=== PATIENT | female | born 1950 | race Caucasian/White ===

== ENCOUNTER → 2016-07-25 | Outpatient (CLI) | payer BC ==
[~2016-07-25] MED LIST: ASPI-496 PO; CALC-451 PO; INSU100V8 SQ; LEVO150T5 PO; LISI5TAB7 PO; METF500T4 PO; SIMV10TA3 PO
[2016-07-25 15:29] LABS: BLOOD UREA NITROGEN 16 mg/dL (7-18)
[2016-07-25 15:37] LABS: ASPARTATE AMINO TRANSFERASE 12 U/L (15-37)
== END | disposition home or self-care (01) ==
LOC: STAR 14:08
PROVIDERS: ATTEND Orthopaedic Surgery
DX: Z01.818 Encounter for other preprocedural examination (principal); S83.241A Other tear of medial meniscus, current injury, right knee, initial encounter; X58.XXXA Exposure to other specified factors, initial encounter; Y93.89 Activity, other specified; Y92.89 Other specified places as the place of occurrence of the external cause; Y99.8 Other external cause status
CPT/HCPCS: 36415; 80053; 93005

== ENCOUNTER 2016-08-01 11:12 | Day surgery (SDC) | payer BC ==
[~2016-08-01] VITALS: Ht 154.9 cm; Wt 84.0 kg
[~2016-08-01 11:12] MED LIST changes: +BUPIVACAINE/PF-EPI 0.25% 1:200K ONE; +LIDOCAINE 1%-EPI 1:100K, 50ML ONE
[2016-08-01] MEDS ORDERED: LACTATED RINGERS 1,000 ML IV SCH (11:31)
[2016-08-01 11:32] VITALS: BP 134/83
[2016-08-01] MEDS ORDERED: DEXTROSE 50%, 50ML SYRINGE IVPush STA (11:52)
[2016-08-01] MEDS ORDERED: DEXTROSE 50%, 50ML SYRINGE ONE (11:55)
[2016-08-01] MEDS ORDERED: FENTANYL PF 250 MCG/5ML ONE (12:54)
[2016-08-01] MEDS ORDERED: MIDAZOLAM 1 MG/ML, 2ML ONE (12:54)
[2016-08-01] MEDS ORDERED: TEMPLATE NON-FORMULARY MED. (Insulin Glargine,Hum.rec.anlog** (Lantus**) 20 UNITS) SQ SCH (13:30)
[2016-08-01] MEDS ORDERED: ONDANSETRON 2MG/ML, 2ML ONE (13:37)
[2016-08-01] MEDS ORDERED: PROPOFOL 10 MG/ML, 20ML ONE (13:37)
[2016-08-01] MEDS ORDERED: KETOROLAC 30 MG/1 ML ONE (13:37)
[2016-08-01] MEDS ORDERED: DEXAMETHASONE 4 MG/ML, 5ML ONE (13:37)
[2016-08-01] MEDS ORDERED: CEFAZOLIN 1,000 MG ONE (13:37)
[2016-08-01] MEDS ORDERED: HYDROmorphone 1 MG/ML, 1ML IV PRN (14:00)
[2016-08-01] MEDS ORDERED: LABETALOL 5MG/ML, 20ML IV PRN (14:00)
[2016-08-01] MEDS ORDERED: MEPERIDINE/PF 25MG/0.5ML IVPush PRN (14:00)
[2016-08-01] MEDS ORDERED: OXYcodone 5 MG/5 ML ORAL.SOL UDC PO PRN (14:00)
[2016-08-01] MEDS ORDERED: ONDANSETRON 2MG/ML, 2ML IVPush PRN (14:00)
[2016-08-01] MEDS ORDERED: ALBUTEROL/IPRATROPIUM 2.5MG/0.5MG, 3 ML NPPB PRN (14:00)
[2016-08-01] MEDS ORDERED: hydrALAzine 20 MG/ML, 1ML IV PRN (14:00)
[2016-08-01] MEDS ORDERED: PROMETHAZINE 25 MG/ML, 1ML IV PRN (14:00)
[2016-08-01] MEDS ORDERED: MIDAZOLAM 1 MG/ML, 2ML IV PRN (14:00)
[2016-08-01] MEDS ORDERED: ACETAMINOPHEN 325 MG TABLET PO PRN (14:00)
[2016-08-01] MEDS ORDERED: FENTANYL PF 100 MCG/2ML ONE ×2 (14:20→14:44)
[2016-08-01] MEDS: FENTANYL PF 100 MCG/2ML IV PRN ×3 (14:35→14:57)
[2016-08-01] MEDS ORDERED: OXYcodone 5 MG/5 ML ORAL.SOL UDC ONE (14:44)
[2016-08-01] MEDS ORDERED: ACETAMINOPHEN 650 MG/20.3 ML UDC ONE (14:44)
[2016-08-01] MEDS ORDERED: SIMVASTATIN 10 MG TABLET PO SCH (21:00)
[2016-08-01] MEDS ORDERED: metFORMIN 500 MG TABLET PO SCH (21:00)
[2016-08-02] MEDS ORDERED: LEVOTHYROXINE 150 MCG TABLET PO SCH (09:00)
[2016-08-02] MEDS ORDERED: ASPIRIN 81 MG TABLET EC PO SCH (09:00)
[2016-08-02] MEDS ORDERED: LISINOPRIL 5 MG TABLET PO SCH (09:00)
== END 2016-08-01 16:40 ==
LOC: OUT 11:12
PROVIDERS: ATTEND Orthopaedic Surgery
DX: S83.231A Complex tear of medial meniscus, current injury, right knee, initial encounter (principal); S83.281A Other tear of lateral meniscus, current injury, right knee, initial encounter; M17.11 Unilateral primary osteoarthritis, right knee; M94.261 Chondromalacia, right knee; E11.9 Type 2 diabetes mellitus without complications; I10 Essential (primary) hypertension; E03.9 Hypothyroidism, unspecified; Z79.82 Long term (current) use of aspirin; Z79.4 Long term (current) use of insulin; X58.XXXA Exposure to other specified factors, initial encounter; Y93.9 Activity, unspecified; Y92.9 Unspecified place or not applicable; Y99.9 Unspecified external cause status
CPT/HCPCS: 29880; 82962; J0690; J1100; J1885; J2250; J2405; J2704; J3010; J7120

== ENCOUNTER 2020-06-06 08:57 | Emergency (ER) | payer BC ==
[~2020-06-06] VITALS: Ht 154.9 cm; Wt 74.3 kg
[~2020-06-06 08:57] MED LIST changes: -BUPIVACAINE/PF-EPI 0.25% 1:200K ONE; -LIDOCAINE 1%-EPI 1:100K, 50ML ONE; +METF500T17 PO; -METF500T4 PO; +SIMV10TA18 PO; -SIMV10TA3 PO
--- NOTE | 2020-06-06 08:59 | NUR ---
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
[2020-06-06 09:41] LABS: BASOPHILS % (AUTO) 1 % (0-1); EOSINOPHILS % (AUTO) 5 % (1-7); LYMPHOCYTES % (AUTO) 25 % (22-44); MEAN CORPUSCULAR HEMOGLOBIN 30.4 pg (27.0-34.8); MEAN CORPUSCULAR HGB CONC 33.1 g/dL (32.4-35.8); MEAN PLATELET VOLUME 8.6 fL (7.4-10.4); MONOCYTES % (AUTO) 9 % (2-9); NEUTROPHILS % (AUTO) 61 % (42-75); PLATELET COUNT 260 x10^3/uL (130-400); RED BLOOD COUNT 4.77 x10^6/uL (3.82-5.3); RED CELL DISTRIBUTION WIDTH 13.2 % (9.6-15.2)
[2020-06-06 09:45] LABS: MD NO
[2020-06-06 09:52] LABS: ALBUMIN 3.9 g/dL (3.4-5.0); ANION GAP 6 mmol/L (5-15); CALCIUM 9.4 mg/dL (8.5-10.1); CHLORIDE 106 mmol/L (98-107); CREATININE 0.88 mg/dL (0.55-1.02)
[2020-06-06] MEDS ORDERED: INSU100V35 SC (10:15)
[2020-06-06] MEDS ORDERED: INSU100C5 SQ-INSULIN (10:15)
--- NOTE | 2020-06-06 10:17 | NUR ---
PT CALMLY SITTING ON GURNEY ON PHONE, FAMILY AT BS. AMBULATED TO BR WITH STEADY GAIT. COMFORT MEASURES PROVIDED. CALL LIGHT WITHIN REACH. NO NEEDS AT THIS TIME.
[2020-06-06] MEDS ORDERED: LORazepam 2 MG/ML, 1ML ONE (10:40)
[2020-06-06] MEDS ORDERED: LORazepam 2 MG/ML, 1ML IVPush ONE (11:00)
--- NOTE | 2020-06-06 11:00 | NUR ---
PT TO MRI, BECAME ANXIOUS WHILE LAYING FLAT STATING "I FEEL LIKE IM CHOKING." ERP NOTIFIED. PT MEDICATED PER EMAR. PT STATED SHE FELT CALMER AFTER MEDICATION AND IS COMFORTABLE CONTINUING WITH MRI. NAD, AIRWAY STABLE. AWAITING PT RETURN FROM MRI
[2020-06-06 11:27] VITALS: BP 124/55
--- NOTE | 2020-06-06 11:29 | NUR ---
PT BACK FROM MRI
--- NOTE | 2020-06-06 12:18 | NUR ---
Patient given discharge instructions and they have confirmed that they understand the instructions. Patient ambulatory with steady gait.
== END 2020-06-06 12:19 | disposition home or self-care (01) ==
LOC: ED 09:33
DX: G51.0 Bell's palsy (principal); R51.9 Headache, unspecified; R94.31 Abnormal electrocardiogram [ECG] [EKG]
CPT/HCPCS: 36415; 70450; 70551; 80048; 82040; 85025; 93005; 96374; 99285; J2060; J7512